=== PATIENT | female | born 1950 | race Caucasian/White ===

== ENCOUNTER 2017-05-15 06:29 | Day surgery (SDC) | payer BC ==
[~2017-05-15 06:29] MED LIST: Lactated Ringers 1,000 ML IV SCH
[2017-05-15] MEDS ORDERED: Ondansetron 4 MG/2 ML SDV ONE (07:28)
[2017-05-15] MEDS ORDERED: Succinylcholine/Normal Saline 200 MG/10 ML Syringe ONE (07:28)
[2017-05-15] MEDS ORDERED: fentaNYL 100 MCG/2 ML SDV ONE (07:28)
[2017-05-15] MEDS ORDERED: Rocuronium 10 MG/ML 10 ML Syringe ONE (07:28)
[2017-05-15] MEDS ORDERED: Propofol 200 MG/20 ML SDV ONE (07:28)
[2017-05-15] MEDS ORDERED: Midazolam 1 MG/ML 2 ML SDV ONE (07:28)
--- NOTE | 2017-05-15 07:30 | PCM.PREANE ---
Preanesthetic Assessment - Anesthesia/Transfusion/Family Hx Anesthesia History: Prior Anesthesia Without Reaction Family History of Anesthesia Reaction: No Transfusion History: Prior Transfusion Without Reaction - Review of Systems General: No Symptoms Pulmonary: No Symptoms Cardiovascular: No Symptoms Gastrointestinal: No Symptoms Neurological: No Symptoms Other: Reports: Anxiety - Physical Assessment NPO Status Date: 05/14/17 NPO Status Time: 19:00 O2 Sat by Pulse Oximetry: 96 Respiratory Rate: 16 Vital Signs: Last Vital Signs Temp 36.4 C 05/15/17 06:45 Pulse 73 05/15/17 06:45 Resp 16 05/15/17 06:45 BP 148/59 H 05/15/17 06:45 Pulse Ox 96 05/15/17 06:45 Height: 1.7 m Weight: 94.801 kg ASA Class: 2 Mental Status: Alert & Oriented x3 Airway Class: Mallampati = 2 Dentition: Reports: Normal Dentition, Dentures ROM/Head Extension: Full Lungs: Clear to Auscultation, Normal Respiratory Effort Cardiovascular: Regular Rate, Regular Rhythm - Allergies Allergies/Adverse Reactions: Allergies Allergy/AdvReac Type Severity Reaction Status Date / Time egg Allergy Nausea and Verified 05/11/17 11:34 Vomiting - Anesthesia Plan Pre-Op Medication Ordered: None - Acknowledgements Anesthesia Type Planned: General Anesthesia Pt an Appropriate Candidate for the Planned Anesthesia: Yes Alternatives and Risks of Anesthesia Discussed w Pt/Guardian: Yes Pt/Guardian Understands and Agrees with Anesthesia Plan: Yes Additional Comments: has chronic pain from ear and from kidney (chronic hematuria, dx at [facility]) PreAnesthesia Questionnaire HEENT History: Reports: Other (See Below) Other HEENT History: upper denture Gastrointestinal History: Reports: None Genitourinary History: Reports: Other (See Below) Other Genitourinary History: "bleeding kidney" 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: Musculoskeletal History: Reports: Fracture Other Musculoskeletal History: hx fx foot Psychiatric History: Reports: Anxiety, Depression Endocrine/Metabolic History: Reports: Obesity/BMI 30+ Hematologic History: Reports: Blood Transfusion(s) Other Hematologic History: transfusion for PP bleed- no reaction - Past Surgical History Head Surgeries/Procedures: Reports: None HEENT Surgical History: Reports: Oral Surgery GI Surgical History: Reports: Colonoscopy Female Surgical History: Reports: D&C, Other (See Below) Other Female Surgeries/Procedures: exploratory kidney surgery - SUBSTANCE USE Smoking Status *Q: Current Every Day Smoker Tobacco Use Within Last Twelve Months: Cigarettes Days Per Week of Alcohol Use: 0 Recreational Drug Use History: No - HOME MEDS Home Medications: Home Meds Hydrocodone/Acetaminophen [Hydrocodon-Acetaminophn 10-325] 1 - 2 tab PO ASDIRECTED PRN 07/10/14 [History] fentaNYL [Duragesic] 1 patch TRDERM ASDIRECTED 07/10/14 [History] ALPRAZolam [Xanax] 0.5 mg PO TID PRN 05/11/17 [History] Ciprofloxacin HCl [Cipro] 250 mg PO BID 05/11/17 [History] Ciprofloxacin HCl/Dexameth [Ciprodex Otic Suspension] 4 drop EARLF BID 05/11/17 [History] Furosemide [Lasix] 20 mg PO DAILY PRN 05/11/17 [History] HYDROmorphone [Dilaudid] 1 - 2 tab PO ASDIRECTED PRN 05/11/17 [History] Naloxone [Narcan] 1 spray SHEBA ASDIRECTED PRN 05/11/17 [History] Rosuvastatin Calcium 5 mg PO BEDTIME 05/11/17 [History] - CURRENT (IN HOUSE) MEDS Current Meds: Current Medications Lactated Ringer's (Ringers, Lactated) 1,000 mls @ 125 mls/hr IV ASDIRECTED DASH Last Admin: 05/15/17 07:00 Dose: 125 mls/hr
[2017-05-15] MEDS ORDERED: Ciprofloxacin/Dexamethasone 0.3-0.1% Otic Susp 7.5 ML Bottle ONE (07:31)
[2017-05-15] MEDS ORDERED: HYDROmorphone 2 MG/ML Syringe ONE (08:04)
--- NOTE | 2017-05-15 08:04 | PCM.HPR ---
H & P Addendum review - H & P Addendum Review Date of Original H & P: 05/04/17 Date Reviewed: 05/15/17 Time Reviewed: 07:55 Patient was Examined: No Changes
[2017-05-15] MEDS ORDERED: Lidocaine 2% with EPINEPHrine 1:100,000 20 ML MDV ONE (08:24)
[2017-05-15] MEDS ORDERED: Bupivacaine 0.5% 10 ML SDV ONE (08:25)
[2017-05-15] MEDS ORDERED: Bupivacaine 0.25%/EPINEPHrine 1:200,000 10 ML SDV ONE (08:26)
[2017-05-15] MEDS ORDERED: EPINEPHrine 1 MG/ML SDV ONE (08:34)
[2017-05-15] MEDS ORDERED: ePHEDrine 50 MG/ML SDV ONE (08:44)
--- NOTE | 2017-05-15 09:38 | PCM.OPNOTE ---
- General Post-Op/Procedure Note Date of Surgery/Procedure: 05/15/17 Condition: Good Free Text/Narrative:: Diagnosis: Left ear canal mass Procedure: Exam under microscope of Left ear and excision of mass [ CPT 37918] Surgeon : Concepcion Singletary MD Anesthesia: GA Anesthesiologist: Dr Fadi Schulz CRNA, MD Date of procedure: 05/15/2017 Indications : This patient presented to my office with a two-month history of severe left sided earache. She was seen by primary care physician and left ear irrigation was performed when an ear mass was noticed. When seen by me in the office she had an extremely tender inferiorly based sessile left ear mass. She gave a history of having used foreign objects for many years to clean/ itch her ears. She was treated with topical and oral antibiotics with no significant response. With continued severe pain she underwent a CT scan of temporal bones which showed a soft tissue mass in the left external ear canal lateral to the tympanic membrane not involving the underlying bones. She was hence consented for the procedure today. Findings : A firm mass in the left external auditory canal seemed to be originating at the anterior inferior deep aspect of the external auditory canal just lateral to the tympanic membrane. Minimal amount of bone was exposed posterior inferiorly. The tympanic membrane - 3/4 that was viewed seemed intact. The mass was excised and sent for histopathology. Operation Details: An informed consent for the procedure was obtained. A time out was performed and the patient was brought back to the operating room and laid supine on the operating room table. Anesthesia was administered with an endotracheal tube. The left ear was addressed. The mass was visualized under microscopefindings as above. 0.5 mils of 0.5% Marcaine with 1: 200,000 epinephrine was injected at the base of this mass. The mass was excised with microscissors. There was residual swelling of the deep aspect of the external auditory canal. Also there was some residual attachment ? Anterior inferiorly just lateral to the tympanic membrane. Hemostasis was achieved with the 1 in 1000 epinephrine soaked cotton balls. The ear canal was packed with Adaptic dressing coated with bacitracin ointment. A cotton ball was placed in the joaquín. This concluded the procedure and the patient was handed over to anesthesia for recovery. Specimens: Left ear canal mass IV fluids: 500 ml Blood products: nil Blood loss : 2 ml Disposition: PACU for recovery Follow up: In 3 days for removal of ear packing
--- NOTE | 2017-05-15 09:38 | PCM.POSTAN ---
POST ANESTHESIA ASSESSMENT - MENTAL STATUS Mental Status: Alert, Oriented - RESPIRATORY Respiratory Status: Respiratory Rate WNL, Airway Patent, O2 Saturation Stable - CARDIOVASCULAR CV Status: Pulse Rate WNL, Blood Pressure Stable - GASTROINTESTINAL GI Status: No Symptoms - POST OP HYDRATION Hydration Status: Adequate & Stable
--- NOTE | 2017-05-15 09:38 | PCM48HPAN ---
Post Anesthesia Note - EVALUATION WITHIN 48HRS OF ANESTHETIC Vital Signs in Normal Range: Yes Patient Participated in Evaluation: Yes Respiratory Function Stable: Yes Airway Patent: Yes Cardiovascular Function Stable: Yes Hydration Status Stable: Yes Pain Control Satisfactory: Yes Nausea and Vomiting Control Satisfactory: Yes Mental Status Recovered: Yes
== END 2017-05-15 10:30 | disposition home or self-care (01) ==
LOC: MW.SDS 06:29
PROVIDERS: ATTEND Otolaryngology
DX: C44.229 Squamous cell carcinoma of skin of left ear and external auricular canal (principal); F41.9 Anxiety disorder, unspecified; E78.00 Pure hypercholesterolemia, unspecified; G89.4 Chronic pain syndrome; F17.210 Nicotine dependence, cigarettes, uncomplicated; F32.9 Major depressive disorder, single episode, unspecified; Z91.012 Allergy to eggs; Z79.891 Long term (current) use of opiate analgesic; Z79.2 Long term (current) use of antibiotics; Z79.899 Other long term (current) drug therapy; Z98.890 Other specified postprocedural states
CPT/HCPCS: 69145; J1170; J2250; J2405; J3010; J7120; 00120; 88305; A9270-GY; J0171; J2704

== ENCOUNTER 2020-02-08 11:13 | Emergency (ER) | payer BC, MEDICARE ==
--- NOTE | 2020-02-08 11:30 | EDM.PDOC ---
ED HPI GENERAL MEDICAL PROBLEM - General Chief Complaint: Lower Extremity Injury/Pain Stated Complaint: RT FOOT INJURY Time Seen by Provider: 02/08/20 11:27 Source of Information: Reports: Patient History Limitations: Reports: No Limitations - History of Present Illness INITIAL COMMENTS - FREE TEXT/NARRATIVE: 69-year-old female on pain management presents with right foot pain after she was getting up from her love seat and walking. She was dragging her right foot and hyper plantarflexed her right foot, she complains of pain to the right midfoot, pain is mild, nonradiating, constant, exacerbated with weightbearing. ROS: A 10-point review of systems, other than pertinent positives and negatives as stated per HPI, is otherwise negative Past medical history: No additional pertinent history Past Surgical history: No additional pertinent history Social history: No additional pertinent history Family history: No additional pertinent history PHYSICAL EXAM General: AOx4, GCS = 15, No distress HEENT: dry mucous membrane Neck: supple, no meningismus, no Kernig or Brudzinski Cardiac: S1S2 RRR Respiratory: CTAB, no crackles or rales, no wheezing Abdomen: Soft, nontender, no rebound or guarding, nondistended, no pulsatile mass. Back: nontender Musculoskeletal: NVI distally, no deformity, mild ttp right forefoot. no pain with toes ROM. Neuro: No focal deficits, CN 2 - 12 WNL. right foot Pain Score (Numeric/FACES): 2 - Related Data Allergies Allergy/AdvReac Type Severity Reaction Status Date / Time egg Allergy Nausea and Verified 02/08/20 11:30 Vomiting Home Meds: Home Meds Hydrocodone/Acetaminophen [Hydrocodon-Acetaminophn 10-325] 1 - 2 tab PO ASDIRECTED PRN 07/10/14 [History] ALPRAZolam [Xanax] 0.5 mg PO TID PRN 05/11/17 [History] Furosemide [Lasix] 20 mg PO DAILY PRN 05/11/17 [History] Naloxone [Narcan] 1 spray SHEBA ASDIRECTED PRN 05/11/17 [History] Rosuvastatin Calcium 5 mg PO BEDTIME 05/11/17 [History] fentaNYL [Fentanyl] 75 mcg TOP ASDIRECTED 02/08/20 [History] Past Medical History HEENT History: Reports: Other (See Below) Other HEENT History: upper denture Gastrointestinal History: Reports: None Genitourinary History: Reports: Other (See Below) Other Genitourinary History: "bleeding kidney" 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: Musculoskeletal History: Reports: Fracture Other Musculoskeletal History: hx fx foot Psychiatric History: Reports: Anxiety, Depression Endocrine/Metabolic History: Reports: Obesity/BMI 30+ Hematologic History: Reports: Blood Transfusion(s) Other Hematologic History: transfusion for PP bleed- no reaction - Past Surgical History Head Surgeries/Procedures: Reports: None HEENT Surgical History: Reports: Oral Surgery GI Surgical History: Reports: Colonoscopy Female Surgical History: Reports: D&C, Other (See Below) Other Female Surgeries/Procedures: exploratory kidney surgery Review of Systems - Review of Systems Review Of Systems: Comprehensive ROS is negative, except as noted in HPI. ED EXAM, GENERAL - Physical Exam Exam: See Below (see dictation) ED TRAUMA EXTREMITY PROCEDURES - Splinting Right Lower Extremity Pre-Procedure NV Status: Normal Post-Procedure NV Status: Normal Splint Material: Boot Orthotic Applied & Form Fitted By: Nurse Provider Post-Splint Application NV Check: NV Status Normal, Good Position Complications: No Course - Vital Signs Last Recorded V/S: Last Vital Signs Temp 96.6 F L 02/08/20 11:34 Pulse 82 02/08/20 11:34 Resp 20 02/08/20 11:34 BP 144/67 H 02/08/20 11:34 Pulse Ox 97 02/08/20 11:34 - Orders/Labs/Meds Orders: Active Orders 24 hr Category Date Time Status DME for Discharge [COMM] Stat Oth 02/08/20 12:40 Ordered - Re-Assessments/Exams Free Text/Narrative Re-Assessment/Exam: 02/08/20 1248 After splinting with cam boot, she is currently stable for discharge. I performed a repeat exam and did not appreciate new abnormal findings. Patient exhibits normal vital signs. She declined crutches. I advised the patient to return to the ER for reevaluation if symptoms worsened, including fever, worsening pain, or any other worrisome symptoms. I instructed the patient to follow up with their PCP within 2-3 days. MEDICAL DECISION MAKING: I reviewed the patients past medical records, lab and radiographic findings. I discussed the case with the patient. My differential diagnosis included: Lisfranc fracture, avulsion fracture, dislocation. X-ray did not reveal any signs of fracture. The affected extremity demonstrated good distal perfusion, warm, pink, cap refill <2 seconds, compartments soft, pulses equal in both extremities. Patient understands to return immediately for worsening pain, swelling, fever, numbness/tingling or other concerns and to f/u with PMD if no improvement of symptoms within 3-5 days. Departure - Departure Time of Disposition: 12:49 Disposition: Home, Self-Care 01 Condition: Good Clinical Impression: Sprain of foot, right - Discharge Information *PRESCRIPTION DRUG MONITORING PROGRAM REVIEWED*: Not Applicable *COPY OF PRESCRIPTION DRUG MONITORING REPORT IN PATIENT RADHA: Not Applicable Instructions: Cast or Splint Care, Adult, [id number], Foot Sprain, Elastic Bandage and RICE Therapy Referrals: Ck Schumacher MD [Primary Care Provider] - 1 Week Forms: ED Department Discharge Additional Instructions: The need for follow-up, as well as the timing and circumstances, are variable depending upon the specifics of your emergency department visit. If you don't have a primary care physician on staff, we will provide you with a referral. We always advise you to contact your personal physician following an emergency department visit to inform them of the circumstance of the visit and for follow-up with them and/or the need for any referrals to a consulting specialist. The emergency department will also refer you to a specialist when appropriate. This referral assures that you have the opportunity for follow-up care with a specialist. All of these measure are taken in an effort to provide you with optimal care, which includes your follow-up. Under all circumstances we always encourage you to contact your private physician who remains a resource for coordinating your care. When calling for follow-up care, please make the office aware that this follow-up is from your recent emergency room visit. If for any reason you are refused follow-up, please contact the [facility] Emergency Department at and asked to speak to the emergency department charge nurse. If you do not have a primary care doctor, please follow up with the clinics below within 3-5 days. [facility] - Primary Care [address] [place] [id number] [facility] [address] [place] [id number] Sepsis Event Note (ED) - Focused Exam Vital Signs: Vital Signs Temp Pulse Resp BP Pulse Ox 02/08/20 11:34 96.6 F L 82 20 144/67 H 97 - My Orders Last 24 Hours: My Active Orders 02/08/20 12:40 DME for Discharge [COMM] Stat - Assessment/Plan Last 24 Hours: My Active Orders 02/08/20 12:40 DME for Discharge [COMM] Stat
--- NOTE | 2020-02-08 12:22 | CR ---
HISTORY: Right foot pain. COMPARISON: None. FINDINGS: Three views of the right foot. Cystic and hypertrophic changes are noted in the mid foot. Flattening of the navicular bone with cystic changes may be degenerative or inflammatory. No evidence for acute fracture or dislocation. Mild soft tissue swelling about the midfoot. Impression : Midfoot arthritis. Dictated by Demetria Emerson MD @ Feb 08 2020 12:16PM Signed by Dr. Demetria Emerson @ Feb 08 2020 12:20PM
== END 2020-02-08 13:05 | disposition home or self-care (01) ==
LOC: MW.ED 11:13
DX: S93.601A Unspecified sprain of right foot, initial encounter (principal); F41.9 Anxiety disorder, unspecified; F32.9 Major depressive disorder, single episode, unspecified; E66.9 Obesity, unspecified; Z68.31 Body mass index [BMI] 31.0-31.9, adult; Z91.012 Allergy to eggs; Z79.899 Other long term (current) drug therapy; W01.0XXA Fall on same level from slipping, tripping and stumbling without subsequent striking against object, initial encounter
CPT/HCPCS: 29515; 73630-26-RT; 73630-RT; 99282; 99283